=== PATIENT | male | born 1965 | race Caucasian/White ===

== ENCOUNTER 2024-07-18 00:58 | Emergency (ER) | payer MEDICAID ==
[~2024-07-18] VITALS: Ht 177.8 cm; Wt 72.6 kg
[2024-07-18 01:29] LABS: BASOPHILS % (AUTO) 0.6 % (0-1); EOSINOPHILS # (AUTO) 0.2 X10'3 (0-0.9); EOSINOPHILS % (AUTO) 3.8 % (0-6); HEMATOCRIT 40.5 % (42.0-52.0); HEMOGLOBIN 14.2 g/dl (14.0-17.9); LYMPHOCYTES # (AUTO) 0.9 X10'3 (1.1-4.8); LYMPHOCYTES % (AUTO) 16.1 % (21-51); MEAN CORPUSCULAR HEMOGLOBIN 31.5 PG (27.0-31.0); MEAN CORPUSCULAR HGB CONC 35.1 g/dL (33.0-36.5); MEAN CORPUSCULAR VOLUME 89.9 FL (78-98); MEAN PLATELET VOLUME 7.3 FL (7.4-10.4); MONOCYTES # (AUTO) 0.5 X10'3 (0-0.9); MONOCYTES % (AUTO) 9.9 % (2-12); NEUTROPHILS # (AUTO) 3.8 X10'3 (1.8-7.7); NEUTROPHILS % (AUTO) 69.6 % (42-75); PLATELET COUNT 306 X10'3 (140-440); RED CELL DISTRIBUTION WIDTH 12.6 % (11.5-14.5); WHITE BLOOD COUNT 5.5 X10'3 (4.5-11.0)
[2024-07-18 01:33] LABS: BILIRUBIN,URINE NEGATIVE (Neg); CLARITY,URINE CLEAR (Clear); COLOR,URINE YELLOW (Yellow); GLUCOSE, URINE >=1000 mg/dl (Neg); KETONES,URINE TRACE mg/dl (Neg); LEUKOCYTE ESTERASE ,URINE NEGATIVE (Neg); NITRITES, URINE NEGATIVE (Neg); OCCULT BLOOD,URINE NEGATIVE (Neg); PROTEIN,URINE NEGATIVE (Neg); UROBILINOGEN,URINE 0.2 E.U/dL (0.2-1.0)
[2024-07-18 01:34] LABS: UA COLLECTION TYPE VOIDED
[2024-07-18 01:39] LABS: BACTERIA,URINE NONE SEEN /HPF (Neg); RBC,URINE NONE SEEN /HPF (0-2); SQUAMOUS EPITHELIAL CELL,UR NONE SEEN /LPF (FEW); WBC,URINE NONE SEEN /HPF (0-4)
[2024-07-18 01:45] LABS: ALANINE AMINOTRANSFERASE 18 U/L (12-78); ALBUMIN 3.4 G/DL (3.4-5.0); ALBUMIN/GLOBULIN RATIO 1.2 (1.1-1.5); ALKALINE PHOSPHATASE 196 IU/L (46-116); ANION GAP 5 (8-16); ASPARTATE AMINO TRANSFERASE 5 U/L (10-37); BILIRUBIN,TOTAL 0.2 MG/DL (0.1-1.0); BLOOD UREA NITROGEN 17 MG/DL (7-18); BUN/CREATININE RATIO 18.7 (10.0-20.0); CALCIUM 8.3 MG/DL (8.5-10.1); CHLORIDE 97 MMOL/L (99-107); CREATININE 0.91 MG/DL (0.60-1.10); POTASSIUM 4.5 MMOL/L (3.5-5.1); SODIUM 132 MMOL/L (135-145); TOTAL CARBON DIOXIDE 30.1 MMOL/L (24-32); TOTAL PROTEIN 6.2 G/DL (6.4-8.2); eCRCL 91 ML/MIN; eGFR 86 ML/MIN
[2024-07-18 01:53] LABS: GLUCOSE 557 MG/DL (70-104)
[2024-07-18] MEDS: normal saline 1000ml 1,000 ML IV ONE ×2 (02:09→04:02)
[2024-07-18 02:41] VITALS: TEMP 97.1
--- NOTE | 2024-07-18 03:55 | Physician Documentation ---
History of Present Illness ~ Chief Complaint: Hyperglycemia Stated Complaint: HIGH BP Time Seen by MD: 03:53 Primary Medical Doctor: loreto chavez [facility] Mode of Arrival: POV HPI Patient presents to the emergency room with hyperglycemia. He has been working with his primary care to try and get refills of his medications however he was ran out of his Jardiance. Denies any fevers. Medication Reconciliation Allergies: Coded Allergies: No Known Allergies (Unverified , 12/16/15) Scheduled Empagliflozin (Jardiance), 1 TAB PO DAILY Past Medical History Past Medical History: Hypertension, Diabetes Past Surgical History: noncontributory Lives with: Spouse Lives In: Home Review of Systems ROS All review of systems negative except as per HPI Physical Exam Vital Signs: Temperature: 97.1, Source: Oral, Heart Rate: 90, Respiratory Rate: 16, BP: 123/73, Pulse Oximetry: 99, Weight: 72.600 Oxygen Flow Rate: 0 Physical Exam General: Patient is awake, alert, oriented x4 in no acute distress Head: Normocephalic and atraumatic. Eyes: Conjunctival normal. EOMI. PERRL. ENT: Mucous membranes moist. Neck: Supple, trachea is midline. Chest: Clear to auscultation bilaterally without rales, rhonchi, or wheezes. There is no accessory muscle use or retractions. Cardiac: RRR without murmurs, gallops, or rubs. Abd: Soft, nondistended, nontender, with normoactive bowel sounds. No guarding, rebound, or rigidity. Progress Results/Orders Results/Orders Completed Orders - NILTON POTTER MD BMP (07/18/24 01:14) Cbc/Diff (07/18/24 01:14) Procalcitonin (07/18/24 01:14) CMP (07/18/24 01:16) Ua W/Microscopic, Cult If Ind (07/18/24 01:27) Normal Saline 1000ml (Sodium Chloride 10 (07/18/24 02:00) Normal Saline 1000ml (Sodium Chloride 10 (07/18/24 03:55) Insulin Regular, Human (Humulin R 10 Uni (07/18/24 03:55) Medications Received in ER Medications (Trade) Dose Ordered Sig/Mery Route PRN Reason Start Time Stop Time Status Last Admin Dose Admin Sodium Chloride 1,000 ml @ 1,000 mls/hr ONCE ONCE IV 07/18/24 02:00 07/18/24 02:59 DC 07/18/24 02:09 1,000 MLS/HR Sodium Chloride 1,000 ml @ 1,000 mls/hr ONCE ONCE IV 07/18/24 03:55 07/18/24 04:54 DC 07/18/24 04:02 1,000 MLS/HR (HumuLIN R 10 units per 0.1 ML syringe) 10 units ONCE ONCE IV 07/18/24 03:55 07/18/24 03:56 DC 07/18/24 04:04 10 UNITS Vital Signs 07/18/24 07/18/24 07/18/24 07/18/24 00:59 02:35 02:41 04:39 Temp 97.5 97.1 Pulse 95 90 88 Resp 18 16 16 16 B/P (MAP) 155/86 123/73 (90) 122/75 (91) Pulse Ox 100 99 100 O2 Flow Rate 0 0 Laboratory Tests Test 07/18/24 01:04 07/18/24 01:22 07/18/24 01:27 07/18/24 02:06 Glucometer 510 *H 526 *H White Blood Count 5.5 Red Blood Count 4.50 L Hemoglobin 14.2 Hematocrit 40.5 L Mean Corpuscular Volume 89.9 Mean Corpuscular Hemoglobin 31.5 H Mean Corpuscular Hemoglobin Concent 35.1 Red Cell Distribution Width 12.6 Platelet Count 306 Mean Platelet Volume 7.3 L Neutrophils (%) (Auto) 69.6 Lymphocytes (%) (Auto) 16.1 L Monocytes (%) (Auto) 9.9 Eosinophils (%) (Auto) 3.8 Basophils (%) (Auto) 0.6 Neutrophils # (Auto) 3.8 Lymphocytes # (Auto) 0.9 L Monocytes # (Auto) 0.5 Eosinophils # (Auto) 0.2 Basophils # (Auto) 0.0 CBC Comment Sodium Level 132 L Potassium Level 4.5 Chloride Level 97 L Carbon Dioxide Level 30.1 Anion Gap 5 L Blood Urea Nitrogen 17 Creatinine 0.91 Estimated GFR/1.73 m2 86 BUN/Creatinine Ratio 18.7 Glucose Level 557 *H Calcium Level 8.3 L Total Bilirubin 0.2 Aspartate Amino Transf (AST/SGOT) 5 L Alanine Aminotransferase (ALT/SGPT) 18 Alkaline Phosphatase 196 H Total Protein 6.2 L Albumin 3.4 Globulin 2.8 Albumin/Globulin Ratio 1.2 Procalcitonin < 0.05 Chemistry Comments Urine Specimen Description Voided Urine Color Yellow Urine Clarity Clear Urine pH 6.0 Urine Specific [place] 1.010 Urine Protein Negative Urine Glucose (UA) >=1000 H Urine Ketones Trace H Urine Occult Blood Negative Urine Nitrite Negative Urine Bilirubin Negative Urine Urobilinogen 0.2 Urine Leukocyte Esterase Negative Urine RBC None seen Urine WBC None seen Urine Squamous Epithelial Cells None seen Urine Bacteria None seen Urine Culture Indicated Not ind Volume Urine Centrifuged 10 ml Urine Comment Test 07/18/24 04:37 Glucometer 225 H Medical Decision Making Findings Patient presented to the emergency room with chief complaint of hyperglycemia need for medication refill. Patient received IV fluids as well as insulin with greatly improved sugars. No evidence of DKA. I will refill his Jardiance. Departure Disposition: HOME / SELF CARE / HOMELESS Impression: Primary Impression: Uncontrolled diabetes mellitus Condition: Improved Discharge Instructions: Hyperglycemia Referrals: NO PRIMARY CARE PROVIDER (PCP) Prescriptions Empagliflozin (Jardiance) 25 Mg Tablet 1 TAB PO DAILY for 30 Days, #30 TAB 0 Refills Prov: NILTON POTTER MD 07/18/24 Education Educated: Patient Educated regarding: diagnosis, treatment, need for follow up Signature Scribe Signature: No scribe Attestation: The note accurately reflects work and decisions made by me.Nilton Potter MD 07/18/24 05:27 NILTON POTTER MD July 18, 2024 03:55
[2024-07-18] MEDS: insulin regular, human 10 units/0.1 ml syringe IV ONE (04:04)
[2024-07-18 04:39] VITALS: RESP 16
[2024-07-18] MEDS ORDERED: EMPA25TA PO (05:25)
[2024-07-18 05:33] VITALS: BP 124/81; PULSE 85; O2SAT 100
[2024-07-18] MEDS ORDERED: BLOO-1084 METER (13:44)
== END 2024-07-18 05:34 | disposition home or self-care (01) ==
LOC: ER 00:58
DX: E11.65 Type 2 diabetes mellitus with hyperglycemia (principal); I10 Essential (primary) hypertension
CPT/HCPCS: 36415; 80053; 81001; 82948; 84145; 85025; 96361; 96374; 99283; J1815; J7030